=== PATIENT | male | born 1945 | race Caucasian/White ===

== ENCOUNTER 2016-11-20 09:41 | Inpatient (IN) | payer OTHER ==
[2016-11-20] MEDS ORDERED: NS 1,000 ML IV ONE (09:47)
[2016-11-20] MEDS ORDERED: diphenhydrAMINE 25 MG CAP PO ONE (09:47)
[2016-11-20] MEDS ORDERED: ASPIRIN EC 325 MG TAB PO ONE (09:47)
[2016-11-20] MEDS ORDERED: FAMOTIDINE 20 MG TAB PO ONE (09:47)
[2016-11-20] MEDS ORDERED: DIAZEPAM 5 MG TAB PO ONE (09:47)
[2016-11-20 10:21] LABS: % IMMATURE GRANULYOCYTES 0.4 % (0.0-1.1); ABSOLUTE IMMATURE GRANULOCYTES 0.02 10^3/uL (0.00-0.10); ADD DIFF? NO; ADD MORPH? NO; ADD SCAN? NO; ATYPICAL LYMPHOCYTE FLAG 0 (0-99); FRAGMENT RBC FLAG 0 (0-99); HEMATOCRIT 41.4 % (40.0-51.0); LEFT SHIFT FLG 0 (0-99); LIPEMIA HEMOLYSIS FLAG 90 (0-99); MEAN CELL HEMOGLOBIN 31.5 pg (27.9-34.1); MEAN CELL HEMOGLOBIN CONCENTR. 33.8 g/dL (32.4-36.7); MEAN PLATELET VOLUME 8.9 fL (8.7-11.7); PLATELET CLUMPS FLAG 0 (0-99); PLATELET COUNT 208 10^3/uL (150-400); RED BLOOD CELL COUNT 4.45 10^6/uL (4.40-6.38); RED CELL DISTRIBUTION WIDTH 13.4 % (11.5-15.2)
[2016-11-20 10:31] LABS: ANION GAP 13 mEq/L (8-16); CALCIUM 9.5 mg/dL (8.5-10.4); CARBON DIOXIDE 22 mEq/l (22-31); CHLORIDE 108 mEq/L (97-110); CHOLESTEROL 182 mg/dL (140-220); CHOLESTEROL/HDL RATIO 2.28 RATIO (1.00-4.97); GLOMERULAR FILTRATION RATE > 60; GLUCOSE 80 mg/dL (70-100); HIGH DENSITY LIPOPROTEIN 80 mg/dL (40-65); LDL/HDL RATIO 1.13 RATIO (1.00-3.64); LOW DENSITY LIPOPROTEIN 90 mg/dL (80-100); MAGNESIUM 2.1 mg/dL (1.6-2.3); NON-HIGH DENSITY LIPOPROTEIN 102 mg/dL (90-129); POTASSIUM 4.6 mEq/L (3.5-5.2); SODIUM 143 mEq/L (134-144); TRIGLYCERIDE 63 mg/dL (40-150); VERY LOW DENSITY LIPOPROTEINS 12 mg/dL (8-25)
[2016-11-20 10:33] LABS: INR 1.04 (0.83-1.16); PROTIME(PATIENT) 13.5 SEC (12.0-15.0)
[2016-11-20] MEDS ORDERED: HEPARIN 10,000 UNIT/10 ML MDV ONE (14:39)
[2016-11-20] MEDS ORDERED: fentaNYL 100 MCG/2 ML INJ ONE (14:39)
[2016-11-20] MEDS ORDERED: LIDOCAINE 1% 300 MG/30 ML SDV ONE (14:39)
[2016-11-20] MEDS ORDERED: VERAPAMIL 5 MG/2 ML VIAL ONE (14:39)
[2016-11-20] MEDS ORDERED: MIDAZOLAM 2 MG/2 ML VIAL ONE (14:39)
[2016-11-20] MEDS ORDERED: IOPAMIDOL (ISOVUE-370) 150 ML BTL IV ONE (14:39)
[2016-11-20] MEDS ORDERED: NITROGLYCERIN 0.4 MG BTL SL PRN (16:43)
[2016-11-20] MEDS ORDERED: ACETAMINOPHEN 325 MG TAB PO PRN (16:43)
[2016-11-20] MEDS ORDERED: TEMAZEPAM 15 MG CAP PO PRN (16:43)
[2016-11-20] MEDS ORDERED: HYDROCODONE/APAP 5/325 TAB PO PRN (16:43)
[2016-11-20] MEDS ORDERED: ATROPINE SULFATE 1 MG/10 ML SYR IVP PRN (16:43)
[2016-11-20] MEDS ORDERED: NS 1,000 ML IV SCH (16:45)
--- NOTE | 2016-11-20 17:44 | PDDXCAT ---
Diagnostic Cath Note - . Date: 11/20/16 Security Flex Officer: [place] Indication: other (Accelerating angina and abnormal exercise treadmill test.) - Procedure Access: right wrist Procedure: left heart catheterization, coronary angiography, left ventriculogram - Materials Left Heart Cath size: 5F Left Heart Cath materials: other (Sightseer and Pigtail) - Findings-Left Heart Catheterization LM: Distal 50%. LAD: Diffuse disease proximal to mid up to 50%. LCX: Ostial stenosis > 90% with [id number] collaterals. RCA: Mild irregularities proximal to distal; PDA 50% ostial; posterolateral branch 50% proximal. EDP: 20 mmHg LVEF: 60% Wall motion: Normal. Ascending aorta appears dilated. Complications: None Estimated blood loss: <50ml Closure method: TR Band Assessment: 1) Normal left ventricular systolic function. 2) Coronary artery disease as described above. Plan: Because of the escalating nature of his angina episodes, he will be admitted to the hospital following his catheterization. He will be started on beta brina therapy and a daily aspirin. His atorvastatin will be continued. A lipid panel will be checked tomorrow to make sure that he is at target levels for cholesterol suppression. Cardiothoracic surgery will be consulted to assess him for coronary bypass grafting. An echocardiogram will be obtained to check for any valvular issues. A noncontrasted CT of the chest will be ordered to assess his ascending aorta.
--- NOTE | 2016-11-20 18:04 | GHP ---
[f rep st] HISTORY AND PHYSICAL DATE OF ADMISSION: 11/20/2016 REASON FOR ADMISSION: 1. Escalating angina. 2. Abnormal exercise treadmill test. HISTORY: Mr. Song is a 71-year-old male with no prior cardiac history. He recently saw his primary care provider and reported that he had been experiencing episodes of chest discomfort described as a compressing-type feeling located in the middle of the chest and radiating outward. These episodes started at least 2 months ago. However, they have been increasing in their frequency and occurring with lower levels of physical exertion. He did experience 1 nocturnal episode last week which persisted for approximately 2 minutes. There was no associated shortness of breath, nausea, or diaphoresis. His primary care provider referred him to the office of [facility] for a standard exercise treadmill test. That procedure was carried out earlier today. He exercised 4 minutes and 8 seconds of the [place] protocol, reaching 88 % MPHR. He had his usual chest discomfort symptoms in conjunction with exercise. His ECG demonstrated ST-segment depression of up to 2 mm in the inferior leads and lateral precordial leads. His cardiac risk profile is notable for hyperlipidemia, for which he is treated with statin therapy. He does not have a history of hypertension or type 2 diabetes. He smoked in the past, but stopped at least 40 years ago. PAST MEDICAL HISTORY: 1. Hyperlipidemia. 2. Osteoarthritis. PAST SURGICAL HISTORY: Bilateral total hip replacements. FAMILY HISTORY: Noncontributory. MEDICATIONS: 1. Atorvastatin 40 mg per day. 2. Probiotic. 3. Ibuprofen 400 mg daily. ALLERGIES: No known drug allergies. SOCIAL HISTORY: He is . As mentioned previously, he smoked in the distant past. His alcohol consumption is minimal. He is semi-retired from business. REVIEW OF SYSTEMS: Apart from the chest discomfort episodes that prompted this hospital stay, a 10-point review was negative. PHYSICAL EXAMINATION: VITAL SIGNS: Heart rate 74, with sinus rhythm on the monitor. Blood pressure 112/77, with O2 saturation 97% on room air. GENERAL: Well developed, well nourished, healthy-appearing male in no acute distress. He is alert and oriented x3. HEAD AND NECK: No scleral icterus. Mucous membranes moist. Carotid pulses 2+ without bruits. There is no JVD. CHEST: Lung ocampo clear to auscultation. CARDIAC: Regular rate and rhythm, with normal S1, S2. No murmur or gallop appreciated. ABDOMEN: Soft, nontender, nondistended, with normoactive bowel sounds. EXTREMITIES: 2+ pulses and no peripheral edema. An Mike test on the right wrist was normal at less than 5 seconds. IMPRESSION: This is a 71-year-old male with fairly typical angina which has been accelerating and occurring at lower levels of physical exertion, including 1 resting episode of chest discomfort last week. His risk profile for coronary artery disease consists predominantly of his age and hyperlipidemia. His stress test was notable for his clinical angina and ischemic ST-segment depressions. PLAN: Preparations are underway for the patient to undergo cardiac catheterization. Further diagnostic and therapeutic decisions await the outcome of that study. /[id number]/MODL MTDD
[2016-11-20] MEDS: ONDANSETRON 4 MG/2 ML VIAL IVP PRN (20:48)
[2016-11-20] MEDS: METOPROLOL TARTRATE 25 MG TAB PO SCH ×2 (22:07→23:18)
[2016-11-20] MEDS: ATORVASTATIN CALCIUM 40 MG TAB PO SCH (22:07)
[2016-11-21 04:47] LABS: CHOLESTEROL 125 mg/dL (140-220); CHOLESTEROL/HDL RATIO 2.31 RATIO (1.00-4.97); HIGH DENSITY LIPOPROTEIN 54 mg/dL (40-65); LDL/HDL RATIO 1.09 RATIO (1.00-3.64); LOW DENSITY LIPOPROTEIN 59 mg/dL (80-100); NON-HIGH DENSITY LIPOPROTEIN 71 mg/dL (90-129); TRIGLYCERIDE 64 mg/dL (40-150); VERY LOW DENSITY LIPOPROTEINS 12 mg/dL (8-25)
[2016-11-21] MEDS ORDERED: ASPIRIN 325 MG TAB PO SCH (09:00)
--- NOTE | 2016-11-21 09:17 | GCON ---
[f rep st] CONSULTATION DATE OF CONSULTATION: 11/21/2016 REFERRING PHYSICIAN: Nicho Moody MD IMPRESSION: 1. Class 3-4 angina pectoris with 3-vessel disease and normal left ventricular function. 2. Hyperlipidemia. 3. Osteoarthritis. 4. Status post bilateral total hip replacements. RECOMMENDATIONS: This patient should undergo coronary artery revascularization with arterial condui ts as the preferred choice, given his youthful appearance and otherwise good health. I discussed ar terial and venous conduits patency rates at 10 years and overall risk. I would proceed with 2 inter nal mammary arteries and a left radial, if diagnostic testing confirms adequate palmar arch in that hand. Overall risk is less than 1/2 of 1%. Expected length of stay is 4-5 days, and return to work at 4-6 weeks. His daughter is a surgery resident at the [facility] and they are deciding whether chantelle rooney want to stay here or go there for surgical intervention. We would offer surgery tomorrow phylicia gtz if he were willing to stay here. CHIEF COMPLAINT: This gentleman has classic crescendo angina which has progressed over the last 8 m onths to now with minimal activity. He failed a stress test at [address]-segment changes an d chest pain. Diagnostic cath today reveals 3-vessel disease with normal LV function. He has mild enlargement of the ascending aorta. CAT scan is pending. MEDICAL HISTORY: As stated. SURGERIES: As stated. ALLERGIES: Denied. MEDICATIONS: On admission, atorvastatin, probiotic and ibuprofen. He has been started on antiangin al medication by Dr. Moody prior to intervention. SOCIAL HISTORY: He has remote cigarette abuse. Alcohol consumption is minimal. He is semi-retired from engineering. He is and has a daughter who is a 5th year surgery resident. REVIEW OF SYSTEMS: He complains of osteoarthritis in his lower extremities. Otherwise at the prese nt time, he is asymptomatic, denying chest pain. All 10 systems were interrogated and were unremark able. PHYSICAL EXAMINATION: GENERAL: This is a slender, elderly gentleman. Appears markedly younger candie n stated age. In excellent physical health. VITAL SIGNS: 96/52, pulse 56, respirations 14, O2 sat 99% on 2 L. HEENT: Normocephalic. MATT. EOMI. NECK: Without bruit, adenopathy, or thyromegal y. HEART: Rate is regular without murmur, S3 or S4. LUNGS: Clear. ABDOMEN: Soft, nontender. B owel sounds are active. RECTAL AND GENITAL: Deferred. NEUROLOGICAL: He is intact. No gross abno rmality. EXTREMITIES: All extremities move to command. IMAGING: Noncontrast CT was requested as are carotid ultrasounds. PLAN: I will meet with his family later this morning if they intend to stay. Otherwise I have no s cheduled followup with this gentleman. /[id number]/MODL
[2016-11-21] MEDS: METOPROLOL TARTRATE 25 MG TAB PO SCH ×2 (09:33→22:11)
[2016-11-21] MEDS: ASPIRIN 81 MG CHEWABLE TAB PO SCH (09:34)
--- NOTE | 2016-11-21 09:49 | ECHO ---
[id number] + + [address] : : [place] [address] : : [phone] + + Adult Echocardiographic Report + ----+ :Name: CHI BOWSER JStudy Date: 11/21/2016 08:41 AM : : Hospital Admission Number: [id number] Location: 207: :: 1945 Gender: Male Height: 72 in : :Age: 71 yrs Race: WH Weight: 160 lb : :Reason For Study: Eval LV Fx : : BSA: 1.9 meters2 : :History: CAD, Positive Stress Test : + ----+ MMode/2D Measurements \T\ Calculations IVSd: 0.87 cm LVIDd: 4.0 cm FS: 40.0 % Ao root diam: 3.6 cm LVPWd: 0.96 cm LVIDs: 2.4 cm EDV(Teich): 70.8 ml ACS: 2.0 cm ESV(Teich): 20.4 ml LA dimension: 2.8 cm EF(Teich): 71.2 % Normal Measurement Values: + + :LVIDd (3.5-5.7cm) IVSd (0.6-1.1cm) LVPWd (0.6-1.1cm) Aortic Root (2.0-3.7cm)Left Atrium (1.5-4.0cm): :LV Vol(d) (76-115ml) LV Vol(s) (29-48ml) Ejec Fraction (50-65%)PV Enmanuel (0.6- 1.2m/s) TV Enmanuel (0.4-1.0m/s) : :MV E Enmanuel (0.8-1.0m/s)MV A Enmanuel (0.3-1.0m/s)LVOT Enmanuel (0.7-1.2m/s) Asc Ao Enmanuel ( 0.9-1.8m/s) : + + Doppler Measurements \T\ Calculations MV E max enmanuel: Ao V2 max: LV V1 max: PA V2 max: 87.9 cm/sec 95.0 cm/sec 81.4 cm/sec 58.4 cm/sec MV A max enmanuel: Ao max PG: LV V1 max PG: PA max P.3 cm/sec 3.6 mmHg 2.7 mmHg 1.4 mmHg MV E/A: 1.7 TR max enmanuel: 251.1 cm/sec TR max P.2 mmHg RAP systole: 5.0 mmHg RVSP(TR): 30.2 mmHg Left Ventricle The left ventricle is normal in size. There is normal left ventricular wall thickness. The left ventricular ejection fraction is normal. There is Doppler evidence for diastolic dysfunction. Ejection Fraction = 72%. The left ventricular wall motion is normal. Right Ventricle The right ventricle is normal in size and function. Atria The left atrial size is normal. Right atrial size is normal. Mitral Valve There is mild mitral annular calcification. There is no evidence of mitral valve prolapse. There is no mitral valve stenosis. There is no mitral regurgitation noted. Tricuspid Valve Normal tricuspid valve. No tricuspid regurgitation. Aortic Valve The aortic valve is normal in structure and function. There is no aortic stenosis. There is no aortic insufficiency. Pulmonic Valve The pulmonic valve is normal in structure and function. There is no pulmonic valvular regurgitation. Great Vessels The aortic root is normal size. Pericardium/Pleural There is no pericardial effusion. Conclusion A complete two-dimensional transthoracic echocardiogram was performed (2D, M-mode, Doppler and color flow Doppler). The left ventricular ejection fraction is normal. There is Doppler evidence for diastolic dysfunction. Ejection Fraction = 72%. The left ventricular wall motion is normal. The right ventricle is normal in size and function. There is mild mitral annular calcification. The aortic valve is normal in structure and function. The aortic root is normal size. There is no pericardial effusion. Final Reading Physician: Neo Rey signed on 11/21/2016 09:48 AM Ordering Physician: Nicho Moody Performed By: Greg Arteaga, ИВАНCS
[2016-11-21] MEDS ORDERED: MUPIROCIN 2% 22 GM OINT NS ONE (14:16)
--- NOTE | 2016-11-21 14:59 | PDCARPN ---
Cardiology Progress Note Assessment/Plan: Coronary Artery Disease- left main and multivessel CAD with crescendo angina. Has preserved LV systolic function. Echocardiogram this morning demonstrates age -related valvular changes but no hemodynamically significant valvular dysfunction. Carotid ultrasound negative for any significant stenoses. Coronary bypass graft surgery planned for tomorrow. Hyperlipidemia- on treatment with atorvastatin. LDL close to target at 73. Dilated Ascending Aorta- measures 4.[address] scan. Will follow longitudinally. Long-term low-dose beta brina therapy. 11/21/16 14:57 Subjective: No complaints. Reviewed/Discussed With: family Objective: Vital Signs (8 Hrs) Temp Pulse Resp BP Pulse Ox 11/21/16 11:22 37.2 C 57 L 15 117/62 94 11/21/16 09:33 63 103/56 L 11/21/16 07:57 36.7 C 75 19 113/58 L 98 Intake/Output (24 Hrs) 11/20/16 11/21/16 11/22/16 05:59 05:59 05:59 Intake Total 250 Output Total 425 Balance -175 Intake: Oral (ml) 250 Output: Urine (ml) 425 Urinal 425 Other: Weight 72.6 kg Number of Voids Urinal 1 Result Diagrams: 11/20/16 10:10 11/20/16 10:10 - Physical Exam Constitutional: WDWN, healthy appearing, no apparent distress Eyes: anicteric sclera Ears, Nose, Mouth, Throat: moist mucous membranes Cardiovascular: regular rate and rhythm, no murmurs, no gallops Respiratory: clear to auscultate bilat Gastrointestinal: normoactive bowel sounds, no tenderness, no masses Skin: no rashes, no edema Neurologic: AAOx3 Psychiatric: not anxious ICD10 Worksheet Patient Problems: Problems Problem Status Onset Coronary artery disease Acute - ICD10 Problem Qualifiers (1) Coronary artery disease Qualifiers: Coronary Disease-Associated Artery/Lesion type: [place] artery [place] vs. transplanted heart: N Associated angina: with unstable angina
[2016-11-21 17:16] LABS: HEMOGLOBIN A1C 5.4 % (4.0-6.0)
[2016-11-21] MEDS ORDERED: CHLORHEXIDINE GLUC HIBICLENS 118 ML BTL TP SCH (21:00)
[2016-11-21] MEDS: ATORVASTATIN CALCIUM 40 MG TAB PO SCH (22:11)
[2016-11-21] MEDS: MUPIROCIN 2% 22 GM OINT NS SCH (22:39)
[2016-11-22] MEDS ORDERED: AMINOCAPROIC ACID 5 GM/20 ML VIAL IV ONE (06:00)
[2016-11-22] MEDS ORDERED: SODIUM BICARBONATE 20 MEQ, LIDOCAINE 1% 10 ML in NORMOSOL-R 1,000 ML MISC ONE (06:00)
[2016-11-22] MEDS ORDERED: ceFAZolin 2 GM/DEXTROSE 100 ML IV ONE ×2 (06:00→09:45)
[2016-11-22] MEDS ORDERED: niCARdipine/NACL 200 ML IV SCH (06:00)
[2016-11-22] MEDS ORDERED: MUPIROCIN 2% 22 GM OINT NS ONE (06:00)
[2016-11-22] MEDS ORDERED: CITRATE DEXTROSE SOLN 500 ML BAG MISC ONE (06:00)
[2016-11-22] MEDS ORDERED: NOREPINEPHRINE BITARTRATE 16 MG in NS 250 ML IV ONE (06:00)
[2016-11-22] MEDS ORDERED: VERAPAMIL 5 MG, NITROGLYCERIN 2.5 MG, HEPARIN 500 UNIT, SODIUM BICARBONATE 0.2 MEQ in L... MISC ONE (06:00)
[2016-11-22] MEDS ORDERED: PHENYLEPHRINE HCL 50 MG in NS 250 ML IV ONE (06:00)
[2016-11-22] MEDS ORDERED: MANNITOL 25% 12.5 GM/50 ML VIAL IV ONE (06:00)
[2016-11-22] MEDS ORDERED: INSULIN REGULAR HUMAN 100 UNIT in NS 100 ML IV ONE (06:00)
[2016-11-22] MEDS: ASPIRIN 81 MG CHEWABLE TAB PO SCH (07:30)
[2016-11-22] MEDS ORDERED: ALBUMIN 5% 250 ML BOTTLE IV ONE (08:18)
[2016-11-22] MEDS ORDERED: PROTAMINE SULFATE 50 MG/5 ML VIAL IVP ONE (08:18)
[2016-11-22] MEDS ORDERED: MILRINONE/DEXTROSE/100 ML BAG IV ONE (08:18)
[2016-11-22] MEDS ORDERED: CALCIUM CHLORIDE 1 GM/10 ML INJ ONE (08:18)
[2016-11-22] MEDS ORDERED: POTASSIUM Cl (KCl) 20 MEQ/50 ML BAG IV ONE (08:19)
[2016-11-22] MEDS ORDERED: NA BICARBONATE 50 MEQ/50 ML VIAL ONE (08:19)
[2016-11-22] MEDS ORDERED: niCARdipine/NACL/200 ML BAG IV ONE (08:19)
[2016-11-22] MEDS ORDERED: AMIODARONE HCL 150 MG/3 ML VIAL ONE (08:19)
[2016-11-22] MEDS ORDERED: AMINOCAPROIC ACID 5 GM/20 ML VIAL ONE (08:19)
[2016-11-22] MEDS ORDERED: CITRATE DEXTROSE SOLN 500 ML BAG ONE (08:19)
[2016-11-22] MEDS ORDERED: methylPREDNISolone SOD SUCC 1 GM/8 ML VIAL ONE (08:19)
[2016-11-22] MEDS ORDERED: LIDOCAINE 2% 100 MG/5 ML SYR ONE ×2 (08:19→10:30)
[2016-11-22] MEDS ORDERED: ADENOSINE 6 MG/2 ML VIAL ONE (08:19)
[2016-11-22] MEDS ORDERED: MAGNESIUM SULFATE 1 GM/2 ML VIAL ONE (08:19)
[2016-11-22] MEDS ORDERED: DOPamine/DEXTROSE/250 ML BAG IV ONE (08:19)
[2016-11-22] MEDS ORDERED: HEPARIN 10,000 UNIT/10 ML MDV ONE (08:20)
[2016-11-22] MEDS ORDERED: ceFAZolin 1 GM VIAL ONE (08:20)
[2016-11-22] MEDS: METOPROLOL TARTRATE 25 MG TAB PO SCH (08:56)
[2016-11-22] MEDS: MUPIROCIN 2% 22 GM OINT NS SCH ×2 (08:56→21:41)
[2016-11-22] MEDS ORDERED: LR 1,000 ML IV ONE (09:18)
[2016-11-22] MEDS ORDERED: PAPAVERINE HCL 60 MG/2 ML SDV ONE (09:19)
[2016-11-22] MEDS ORDERED: VERAPAMIL 5 MG/2 ML VIAL ONE (09:19)
[2016-11-22] MEDS ORDERED: MINERAL OIL 10 ML VIAL ONE (09:19)
[2016-11-22] MEDS ORDERED: CEFAZOLIN 2 GM/DEXTROSE/100 ML BAG IV ONE (09:37)
--- NOTE | 2016-11-22 10:11 | PDHPUP ---
History & Physical Update H&P update statement: This history and physical update is based on an assessment of the patient which was completed after admission or registration (within 24 hours), but prior to the surgery/procedure. H&P update: H&P reviewed & patient examined (denies CP or SOB while awaiting surgery) H&P changes: Mildly dilated asc aorta of questionable clinical significance. Moderate RCA disease which cardiology does not feel warrants bypass. A1C 5.4%. Type and screen neg for antibodies. Will accept venous conduit if either ELIA unsuitable
[2016-11-22] MEDS ORDERED: MIDAZOLAM 2 MG/2 ML VIAL IVP ONE (10:13)
--- NOTE | 2016-11-22 10:13 | PDANEPAE ---
ANE History of Present Illness 71 yo for CABG ANE Past Medical History - Cardiovascular History Hx Hypertension: No Hx Arrhythmias: No Hx Chest Pain: Yes Hx Coronary Artery / Peripheral Vascular Disease: Yes Hx CHF / Valvular Disease: No Hx Palpitations: No - Pulmonary History Hx COPD: No Hx Asthma/Reactive Airway Disease: No Hx Recent Upper Respiratory Infection: No Hx Oxygen in Use at Home: No Hx Sleep Apnea: No Sleep Apnea Screening Result - Last Documented: Negative - Endocrine History Hx Diabetes: No - Chronic Pain History Chronic Pain: No ANE Review of Systems - Exercise capacity METS (RN): 4 METS ANE Patient History - Allergies Allergies/Adverse Reactions: No Known Allergies Allergy (Unverified 07/19/15 07:28) - Home Medications Home medications: home medication list seen and reviewed Home Medications: Atorvastatin Calcium [Lipitor 40 mg (*)] 40 mg PO HS 07/19/15 [Last Taken 22:00] Herbals/Supplements -Info Only 1 ea PO HS 07/19/15 [Last Taken 11/19/16 22:00] Ibuprofen [Motrin (*)] 400 mg PO DAILY PRN 11/20/16 [Last Taken 11/19/16] - NPO status NPO Since - Liquids (Date): 11/22/16 NPO Since - Liquids (Time): 00:00 NPO Since - Solids (Date): 11/22/16 NPO Since - Solids (Time): 00:00 - Anes Hx Anes Hx: no prior problems - Smoking Hx Smoking Status: Former smoker ANE Labs/Vital Signs - Labs Result Diagrams: 11/20/16 10:10 11/20/16 10:10 - Vital Signs Blood Pressure: 109/64 Heart Rate: 67 Respiratory Rate: 16 O2 Sat (%): 95 Height: 6 ft 0.05 in Weight: 70.5 kg ANE Physical Exam - Airway Neck exam: FROM Mallampati Score: Class 2 Mouth exam: normal dental/mouth exam - Pulmonary Pulmonary: no respiratory distress - Cardiovascular Cardiovascular: regular rate and rhythym - ASA Status ASA Status: III ANE Anesthesia Plan Anesthesia Plan: general endotracheal anesthesia Lines/Monitors: arterial line, central line
[2016-11-22] MEDS ORDERED: fentaNYL 100 MCG/2 ML INJ ONE ×2 (10:27)
[2016-11-22] MEDS ORDERED: REMIFENTANIL HCL 1 MG VIAL ONE (10:27)
[2016-11-22] MEDS ORDERED: PROPOFOL/EMULSION 500 MG/50 ML BOTTLE IV ONE (10:27)
[2016-11-22] MEDS ORDERED: ROCURONIUM 100 MG/10 ML VIAL ONE (10:28)
[2016-11-22] MEDS ORDERED: DEXMEDETOMIDINE HCL 400 MCG in NS 100 ML IV ONE (10:30)
[2016-11-22] MEDS ORDERED: DEXAMETHASONE 4 MG/ML VIAL ONE (10:31)
[2016-11-22] MEDS ORDERED: HYDROmorphONE/DILAUDID 2 MG/ML INJ ONE (12:18)
[2016-11-22] MEDS ORDERED: SUGAMMADEX SODIUM 200 MG/2 ML VIAL IVP ONE (13:30)
[2016-11-22] MEDS ORDERED: ONDANSETRON 4 MG/2 ML VIAL ONE (13:30)
[2016-11-22] MEDS ORDERED: MAGNESIUM SULF 2 GM/WATER 50 ML BAG IV ONE (13:51)
[2016-11-22] MEDS ORDERED: POTASSIUM Cl (KCl) 50 ML IV PRN (13:52)
[2016-11-22] MEDS ORDERED: LACTULOSE 20 GM/30 ML UDCUP PO PRN (13:52)
[2016-11-22] MEDS ORDERED: D50W 25 GM/50 ML SYR IVP PRN (13:52)
[2016-11-22] MEDS ORDERED: MAGNESIUM HYDROXIDE 30 ML UDCUP PO PRN (13:52)
[2016-11-22] MEDS ORDERED: MAGNESIUM SULF 2 GM/WATER 50 ML IV ONE (13:52)
[2016-11-22] MEDS ORDERED: POLYETHYLENE GLYCOL 3350 17 GM PKT PO PRN (13:52)
[2016-11-22] MEDS ORDERED: METOCLOPRAMIDE 10 MG/2 ML VIAL IVP PRN (13:52)
[2016-11-22] MEDS ORDERED: BISACODYL 10 MG SUPP PR PRN (13:52)
[2016-11-22] MEDS ORDERED: SODIUM CL NASAL 45 ML BTL EACHNARE PRN (13:52)
[2016-11-22] MEDS ORDERED: CEPACOL LOZENGE PO PRN (13:52)
[2016-11-22] MEDS ORDERED: PANTOPRAZOLE SODIUM 40 MG in NS 100 ML IV ONE (13:52)
[2016-11-22] MEDS ORDERED: ONDANSETRON DISINTEGRATING 4 MG TAB PO PRN (13:52)
[2016-11-22] MEDS ORDERED: MEPERIDINE 25 MG/ML SYR IVP PRN (13:52)
[2016-11-22] MEDS ORDERED: INSULIN REGULAR HUMAN 100 UNIT in NS 100 ML IV SCH (14:00)
[2016-11-22] MEDS ORDERED: NS 1,000 ML IV SCH (14:00)
--- NOTE | 2016-11-22 14:25 | CPEKG ---
Heart Rate: 73 RR Interval: 822 P-R Interval: 112 QRSD Interval: 78 QT Interval: 456 QTC Interval: 503 P [place]: 81 QRS [place]: 71 T Wave [place]: 74 EKG Severity - ABNORMAL ECG - EKG Impression: SINUS RHYTHM EKG Impression: PROLONGED QT INTERVAL Electronically Signed By: Varun Younger 22-Nov-2016 14:36:35
[2016-11-22] MEDS ORDERED: D10W 250 ML PRN HYPOGLYCEMIA IV (14:30)
[2016-11-22 14:58] LABS: CALCULATED OXYGEN SATURATION 95 % (92-95)
--- NOTE | 2016-11-22 15:06 | POSTANESTH ---
Post Anesthetic Evaluation Cardiovascular Status: Normal, Stable Respiratory Status: Other, See Comment Level of Consciousness/Mental Status: Moderately Sleepy Pain Control: Adequate, Prn Tx Ordered Nausea/Vomiting Control: Adequate, Prn Tx Ordered Complications Possibly Related to Anesthesia: None Noted (on vent, sedated. No apparent complications from anesthesia)
[2016-11-22] MEDS: ALBUMIN 5% 250 ML IV PRN ×4 (15:45→23:37)
[2016-11-22] MEDS ORDERED: ceFAZolin 2 GM/DEXTROSE 100 ML IV SCH (18:00)
[2016-11-22] MEDS ORDERED: NALOXONE HCL 0.4 MG/ML INJ IVP PRN (18:30)
[2016-11-22] MEDS ORDERED: fentaNYL 100 MCG/2 ML INJ IVP PRN (18:30)
[2016-11-22] MEDS: fentaNYL 100 MCG/2 ML INJ IVP PRN ×5 (18:36→23:30)
[2016-11-22] MEDS: ceFAZolin 2 GM/DEXTROSE 100 ML IV SCH (22:09)
[2016-11-23] MEDS: fentaNYL 100 MCG/2 ML INJ IVP PRN ×4 (00:11→05:31)
[2016-11-23 04:22] LABS: % IMMATURE GRANULYOCYTES 0.2 % (0.0-1.1); ABSOLUTE IMMATURE GRANULOCYTES 0.02 10^3/uL (0.00-0.10); ADD DIFF? NO; ADD MORPH? NO; ADD SCAN? NO; ATYPICAL LYMPHOCYTE FLAG 0 (0-99); FRAGMENT RBC FLAG 0 (0-99); HEMATOCRIT 30.8 % (40.0-51.0); HEMOGLOBIN 10.4 g/dL (13.7-17.5); LEFT SHIFT FLG 50 (0-99); LIPEMIA HEMOLYSIS FLAG 90 (0-99); MEAN CELL HEMOGLOBIN 31.7 pg (27.9-34.1); MEAN CELL HEMOGLOBIN CONCENTR. 33.8 g/dL (32.4-36.7); MEAN CELL VOLUME 93.9 fL (81.5-99.8); MEAN PLATELET VOLUME 9.5 fL (8.7-11.7); PLATELET CLUMPS FLAG 0 (0-99); PLATELET COUNT 148 10^3/uL (150-400); RED BLOOD CELL COUNT 3.28 10^6/uL (4.40-6.38); RED CELL DISTRIBUTION WIDTH 13.3 % (11.5-15.2)
[2016-11-23 04:28] LABS: ANION GAP 9 mEq/L (8-16); CALCIUM 8.2 mg/dL (8.5-10.4); CARBON DIOXIDE 23 mEq/l (22-31); CHLORIDE 110 mEq/L (97-110); CREATININE 0.8 mg/dL (0.7-1.3); GLOMERULAR FILTRATION RATE > 60; GLUCOSE 92 mg/dL (70-100); POTASSIUM 4.6 mEq/L (3.5-5.2); SODIUM 142 mEq/L (134-144)
[2016-11-23] MEDS: ceFAZolin 2 GM/DEXTROSE 100 ML IV SCH ×3 (05:37→20:43)
[2016-11-23] MEDS: ONDANSETRON 4 MG/2 ML VIAL IVP PRN (05:56)
[2016-11-23] MEDS: HEPARIN 5,000 UNIT/0.5 ML SYR SC SCH ×3 (06:31→20:42)
--- NOTE | 2016-11-23 07:09 | SOAPPROG ---
SOAP Progress Note Assessment/Plan: POD #1 CABG x2 (NAVA-LAD, ROSALBA-OM), LLAA Unstable angina/severe 2VD s/p CABGx2 - Transfer to PCU - ASA/BB/Statin for secondary prevention - Heparin SQ for DVT prophylaxis Acute blood loss anemia - Stable with the need for blood product transfusions Subjective: c/o incisional/chest tube site pain. Denies SOB. Objective: Vital Signs Temp Pulse Resp BP Pulse Ox 38.2 C 81 20 130/62 H 94 11/23/16 06:00 11/23/16 06:00 11/23/16 06:00 11/23/16 06:00 11/23/16 06:00 Laboratory Results 11/23/16 04:00 11/23/16 04:00 11/22/16 11/23/16 11/24/16 05:59 05:59 05:59 Intake Total 600 1910 Output Total 2380 Balance 600 -470 PT 13.5 SEC (12.0-15.0) 11/20/16 10:10 INR 1.04 (0.83-1.16) 11/20/16 10:10 Physical Exam - Physical Exam General Appearance: WD/WN, alert, no apparent distress EENT: No scleral icterus (R), No scleral icterus (L) Neck: normal inspection Respiratory: No respiratory distress Cardiac/Chest: regular rate, rhythm Abdomen: non-tender, soft, No distended Skin: normal color, warm/dry Extremities: No pedal edema Neuro/Psych: no motor/sensory deficits, alert, normal mood/affect, oriented x 3 ICD10 Worksheet Patient Problems: Problems Problem Status Onset Acute blood loss anemia Acute Coronary artery disease Acute S/P CABG x 2 Acute ~11/22/16 Ascending aorta dilatation Chronic
[2016-11-23] MEDS ORDERED: KETOROLAC 30 MG/1 ML SDV ONE (07:13)
[2016-11-23] MEDS ORDERED: traMADol 50 MG TAB PO PRN (07:26)
[2016-11-23] MEDS ORDERED: ACETAMINOPHEN 325 MG TAB PO PRN (07:26)
[2016-11-23] MEDS ORDERED: KETOROLAC 30 MG/1 ML SDV IVP ONE (08:03)
[2016-11-23] MEDS: MUPIROCIN 2% 22 GM OINT NS SCH (09:57)
[2016-11-23] MEDS: ASPIRIN 81 MG CHEWABLE TAB PO SCH (09:57)
[2016-11-23] MEDS: PANTOPRAZOLE SODIUM 40 MG TAB PO SCH (09:57)
[2016-11-23] MEDS: HYDROCODONE/APAP 5/325 TAB PO PRN ×3 (14:46→22:54)
[2016-11-23] MEDS: SENNOSIDES/DOCUSATE SODIUM TAB PO SCH (20:42)
[2016-11-23] MEDS ORDERED: METOPROLOL TARTRATE 25 MG TAB PO SCH (21:00)
[2016-11-24] MEDS: HYDROCODONE/APAP 5/325 TAB PO PRN ×5 (02:39→21:09)
[2016-11-24] MEDS: MUPIROCIN 2% 22 GM OINT NS SCH (02:39)
[2016-11-24] MEDS: ceFAZolin 2 GM/DEXTROSE 100 ML IV SCH (05:27)
[2016-11-24] MEDS: HEPARIN 5,000 UNIT/0.5 ML SYR SC SCH ×3 (05:30→21:08)
[2016-11-24] MEDS ORDERED: AMIODARONE HCL 100 ML IV ONE ×2 (05:59→08:28)
[2016-11-24] MEDS ORDERED: AMIODARONE HCL 200 ML IV ONE (05:59)
[2016-11-24] MEDS ORDERED: NS 500 ML IV ONE ×3 (05:59→08:59)
[2016-11-24 06:11] LABS: ANION GAP 7 mEq/L (8-16); CALCIUM 8.5 mg/dL (8.5-10.4); CARBON DIOXIDE 27 mEq/l (22-31); CHLORIDE 104 mEq/L (97-110); GLOMERULAR FILTRATION RATE > 60; GLUCOSE 116 mg/dL (70-100); MAGNESIUM 2.3 mg/dL (1.6-2.3); POTASSIUM 4.7 mEq/L (3.5-5.2); SODIUM 138 mEq/L (134-144)
[2016-11-24] MEDS ORDERED: NS 1,000 ML IV SCH (07:30)
--- NOTE | 2016-11-24 07:59 | SOAPPROG ---
SOAP Progress Note Assessment/Plan: POD #2 CABG x2 (NAVA-LAD, ROSALBA-OM), LLAA Unstable angina/severe 2VD s/p CABGx2 - ASA/BB/Statin for secondary prevention when appropriate - Heparin SQ/SCDs for DVT prophylaxis - ECHO this AM to evaluate LV - NS @ 125 cc/h for dehydration Acute blood loss anemia - Stable with the need for blood product transfusions Post-op atrial fibrillation - Continue amiodarone - Consider BB later today when improvement in BP Subjective: c/o pain at chest tube sites. Hard to take deep breaths. Light-headed when standing. Objective: Vital Signs Temp Pulse Resp BP Pulse Ox 36.9 C 118 H 17 115/66 95 11/24/16 07:12 11/24/16 07:34 11/24/16 07:12 11/24/16 07:34 11/24/16 07:12 Laboratory Results 11/23/16 04:00 11/24/16 05:20 11/23/16 11/24/16 11/25/16 05:59 05:59 05:59 Intake Total 1910 1910 Output Total 2380 800 180 Balance -470 1110 -180 PT 13.5 SEC (12.0-15.0) 11/20/16 10:10 INR 1.04 (0.83-1.16) 11/20/16 10:10 Physical Exam - Physical Exam General Appearance: alert, mild distress EENT: No scleral icterus (R), No scleral icterus (L) Neck: normal inspection Respiratory: No respiratory distress Cardiac/Chest: irregularly irregular Abdomen: non-tender, soft, No distended Skin: normal color, warm/dry Extremities: No pedal edema Neuro/Psych: no motor/sensory deficits, alert, normal mood/affect, oriented x 3 ICD10 Worksheet Patient Problems: Problems Problem Status Onset Acute blood loss anemia Acute Coronary artery disease Acute Postoperative atrial fibrillation Acute S/P CABG x 2 Acute ~11/22/16 Ascending aorta dilatation Chronic
[2016-11-24] MEDS: ASPIRIN 81 MG CHEWABLE TAB PO SCH (08:01)
[2016-11-24] MEDS: SENNOSIDES/DOCUSATE SODIUM TAB PO SCH ×2 (08:01→21:09)
[2016-11-24] MEDS: PANTOPRAZOLE SODIUM 40 MG TAB PO SCH (08:01)
--- NOTE | 2016-11-24 08:45 | CPEKG ---
Heart Rate: 125 RR Interval: 480 P-R Interval: 120 QRSD Interval: 70 QT Interval: 332 QTC Interval: 479 P [place]: 251 QRS [place]: 34 T Wave [place]: 42 EKG Severity - ABNORMAL ECG - EKG Impression: ECTOPIC ATRIAL TACHYCARDIA EKG Impression: ST ELEVATION SUGGESTS PERICARDITIS EKG Impression: BORDERLINE PROLONGED QT INTERVAL Electronically Signed By: Varun Younger 24-Nov-2016 10:07:38
--- NOTE | 2016-11-24 09:28 | ECHO ---
[id number] + + [address] : : [place] [address] : : [phone] + + Adult Echocardiographic Report + ----+ :Name: CHI BOWSER JStudy Date: 11/24/2016 08:46 AM : : Hospital Admission Number: [id number] Location: 222: :: 1945 Gender: Male : :Age: 71 yrs Race: WH : :Reason For Study: Hypotension/evaluate EF/R/O effusion : + ----+ Left Ventricle The left ventricle is hyperdynamic. Pericardium/Pleural There is no pericardial effusion. Conclusion Limited 2-D echo. The study was technically limited. The left ventricle is hyperdynamic. There is no pericardial effusion. Final Reading Physician: Neo Rey signed on 11/24/2016 09:26 AM Ordering Physician: Sebastien Montoya Performed By: Sue Yu, [facility]
[2016-11-24 10:24] LABS: HEMATOCRIT 29.1 % (40.0-51.0); HEMOGLOBIN 9.5 g/dL (13.7-17.5); MEAN CELL HEMOGLOBIN 31.4 pg (27.9-34.1); MEAN CELL HEMOGLOBIN CONCENTR. 32.6 g/dL (32.4-36.7); RED BLOOD CELL COUNT 3.03 10^6/uL (4.40-6.38); RED CELL DISTRIBUTION WIDTH 13.6 % (11.5-15.2)
[2016-11-24] MEDS ORDERED: AMIODARONE HCL 540 MG in D5W 300 ML IV ONE (12:20)
[2016-11-24] MEDS: ATORVASTATIN CALCIUM 40 MG TAB PO SCH (21:09)
[2016-11-25] MEDS: HYDROCODONE/APAP 5/325 TAB PO PRN ×5 (00:53→20:18)
[2016-11-25] MEDS ORDERED: LIDOCAINE 2% JELLY 20 ML (UROJECT) ONE (01:11)
[2016-11-25] MEDS: HEPARIN 5,000 UNIT/0.5 ML SYR SC SCH ×3 (05:25→20:18)
[2016-11-25 06:04] LABS: HEMATOCRIT 26.2 % (40.0-51.0); HEMOGLOBIN 8.6 g/dL (13.7-17.5); MEAN CELL HEMOGLOBIN 31.3 pg (27.9-34.1); MEAN CELL HEMOGLOBIN CONCENTR. 32.8 g/dL (32.4-36.7); MEAN CELL VOLUME 95.3 fL (81.5-99.8); RED BLOOD CELL COUNT 2.75 10^6/uL (4.40-6.38); RED CELL DISTRIBUTION WIDTH 13.4 % (11.5-15.2)
[2016-11-25 06:31] LABS: ANION GAP 7 mEq/L (8-16); CALCIUM 8.1 mg/dL (8.5-10.4); CARBON DIOXIDE 26 mEq/l (22-31); CHLORIDE 104 mEq/L (97-110); CREATININE 0.8 mg/dL (0.7-1.3); GLOMERULAR FILTRATION RATE > 60; GLUCOSE 106 mg/dL (70-100); POTASSIUM 4.2 mEq/L (3.5-5.2); SODIUM 137 mEq/L (134-144)
--- NOTE | 2016-11-25 07:45 | SOAPPROG ---
SOAP Progress Note Assessment/Plan: POD #3 CABG x2 (NAVA-LAD, ROSALBA-OM), LLAA Unstable angina/severe 2VD s/p CABGx2 - ASA/BB/Statin for secondary prevention when appropriate - Heparin SQ/SCDs for DVT prophylaxis - ECHO yesterday revealed hyperdynamic LV without pericardial effusion Acute blood loss anemia - Stable with the need for blood product transfusions Post-op atrial fibrillation - Continue amiodarone - CHADS2-VASc score of 3 - thromboprophylaxis deferred d/t short duration of arrhythmia and ligated left atrial appendage Subjective: Feeling better this morning. Stronger, not light-headed, less pain. Objective: Vital Signs Temp Pulse Resp BP Pulse Ox 36.8 C 76 13 97/54 L 97 11/25/16 07:20 11/25/16 07:20 11/25/16 07:20 11/25/16 07:20 11/25/16 07:20 Laboratory Results 11/25/16 05:45 11/25/16 05:45 11/24/16 11/25/16 11/26/16 05:59 05:59 05:59 Intake Total 1910 1025 Output Total 800 1525 Balance 1110 -500 PT 13.5 SEC (12.0-15.0) 11/20/16 10:10 INR 1.04 (0.83-1.16) 11/20/16 10:10 Physical Exam - Physical Exam General Appearance: WD/WN, alert, no apparent distress EENT: No scleral icterus (R), No scleral icterus (L) Neck: normal inspection Respiratory: No respiratory distress Cardiac/Chest: regular rate, rhythm Abdomen: non-tender, soft, No distended Skin: normal color, warm/dry Extremities: No pedal edema Neuro/Psych: no motor/sensory deficits, alert, normal mood/affect, oriented x 3 ICD10 Worksheet Patient Problems: Problems Problem Status Onset Acute blood loss anemia Acute Coronary artery disease Acute Postoperative atrial fibrillation Acute S/P CABG x 2 Acute ~11/22/16 Ascending aorta dilatation Chronic
[2016-11-25] MEDS: ASPIRIN 81 MG CHEWABLE TAB PO SCH (08:48)
[2016-11-25] MEDS: SENNOSIDES/DOCUSATE SODIUM TAB PO SCH ×2 (08:48→21:22)
[2016-11-25] MEDS: PANTOPRAZOLE SODIUM 40 MG TAB PO SCH (08:48)
[2016-11-25] MEDS: AMIODARONE HCL 200 MG TAB PO SCH ×2 (08:49→20:19)
[2016-11-25] MEDS: CARVEDILOL 3.125 MG TAB PO SCH (17:52)
[2016-11-25] MEDS: ATORVASTATIN CALCIUM 40 MG TAB PO SCH (20:19)
[2016-11-25] MEDS ORDERED: METOPROLOL TARTRATE 25 MG TAB PO SCH (21:00)
[2016-11-26] MEDS: HYDROCODONE/APAP 5/325 TAB PO PRN ×4 (04:40→20:15)
[2016-11-26] MEDS: HEPARIN 5,000 UNIT/0.5 ML SYR SC SCH ×3 (04:41→20:16)
[2016-11-26 05:05] LABS: HEMATOCRIT 24.7 % (40.0-51.0); HEMOGLOBIN 8.2 g/dL (13.7-17.5)
--- NOTE | 2016-11-26 07:33 | SOAPPROG ---
SOAP Progress Note Assessment/Plan: POD #4 CABG x2 (NAAV-LAD, ROSALBA-OM), LLAA Unstable angina/severe 2VD s/p CABGx2 - ASA/BB/Statin for secondary prevention - Final CT to be removed today - Heparin SQ/SCDs for DVT prophylaxis Acute blood loss anemia - Stable with the need for blood product transfusions Post-op atrial fibrillation - Continue amiodarone/beta-brina - CHADS2-VASc score of 3 - thromboprophylaxis deferred d/t short duration of arrhythmia and ligated left atrial appendage Disposition - Home Sunday without services Subjective: Feels well. Ready to get home tomorrow. Objective: Vital Signs Temp Pulse Resp BP Pulse Ox 36.7 C 80 18 117/51 L 96 11/26/16 05:23 11/26/16 05:23 11/26/16 05:23 11/26/16 05:23 11/26/16 05:23 Laboratory Results 11/26/16 04:45 11/25/16 05:45 11/25/16 11/26/16 11/27/16 05:59 05:59 05:59 Intake Total 1025 1308 Output Total 1525 1245 Balance -500 63 PT 13.5 SEC (12.0-15.0) 11/20/16 10:10 INR 1.04 (0.83-1.16) 11/20/16 10:10 Physical Exam - Physical Exam General Appearance: WD/WN, alert, no apparent distress EENT: No scleral icterus (R), No scleral icterus (L) Neck: normal inspection Respiratory: No respiratory distress Cardiac/Chest: regular rate, rhythm Abdomen: non-tender, soft, No distended Skin: normal color, warm/dry Extremities: No pedal edema Neuro/Psych: no motor/sensory deficits, alert, normal mood/affect, oriented x 3 ICD10 Worksheet Patient Problems: Problems Problem Status Onset Acute blood loss anemia Acute Coronary artery disease Acute Postoperative atrial fibrillation Acute S/P CABG x 2 Acute ~11/22/16 Ascending aorta dilatation Chronic
[2016-11-26] MEDS: ASPIRIN 81 MG CHEWABLE TAB PO SCH (07:53)
[2016-11-26] MEDS: CARVEDILOL 3.125 MG TAB PO SCH (07:53)
[2016-11-26] MEDS: SENNOSIDES/DOCUSATE SODIUM TAB PO SCH ×2 (07:53→20:15)
[2016-11-26] MEDS: PANTOPRAZOLE SODIUM 40 MG TAB PO SCH (07:53)
[2016-11-26] MEDS: AMIODARONE HCL 200 MG TAB PO SCH ×2 (07:58→20:15)
[2016-11-26] MEDS: FERROUS SULFATE 325 MG TAB PO SCH (08:54)
[2016-11-26] MEDS ORDERED: CARVEDILOL 3.125 MG TAB PO ONE (09:09)
[2016-11-26] MEDS: CARVEDILOL 6.25 MG TAB PO SCH (17:52)
[2016-11-26] MEDS: ATORVASTATIN CALCIUM 40 MG TAB PO SCH (20:15)
[2016-11-27] MEDS: HYDROCODONE/APAP 5/325 TAB PO PRN ×3 (05:03→20:56)
[2016-11-27] MEDS: HEPARIN 5,000 UNIT/0.5 ML SYR SC SCH (05:03)
--- NOTE | 2016-11-27 07:24 | SOAPPROG ---
SOAP Progress Note Assessment/Plan: POD #5 CABG x2 (NAVA-LAD, ROSALBA-OM), LLAA Unstable angina/severe 2VD s/p CABGx2 - ASA/BB/Statin for secondary prevention - Heparin SQ/SCDs for DVT prophylaxis Acute blood loss anemia - Stable with the need for blood product transfusions Post-op atrial fibrillation - Continue amiodarone/beta-brina - CHADS2-VASc score of 3 - thromboprophylaxis deferred d/t short duration of arrhythmia and ligated left atrial appendage Disposition - Home Today without services Subjective: Feels well. No complaints. Ready to get home. Objective: Vital Signs Temp Pulse Resp BP Pulse Ox 36.8 C 78 16 119/58 L 96 11/27/16 04:00 11/27/16 04:00 11/27/16 05:47 11/27/16 04:00 11/27/16 05:47 Laboratory Results 11/26/16 04:45 11/25/16 05:45 11/26/16 11/27/16 11/28/16 05:59 05:59 05:59 Intake Total 1308 1770 Output Total 1245 1765 Balance 63 5 PT 13.5 SEC (12.0-15.0) 11/20/16 10:10 INR 1.04 (0.83-1.16) 11/20/16 10:10 Physical Exam - Physical Exam General Appearance: WD/WN, alert, no apparent distress EENT: No scleral icterus (R), No scleral icterus (L) Neck: normal inspection Respiratory: No respiratory distress Cardiac/Chest: regular rate, rhythm Abdomen: soft, No non-tender, No distended Skin: normal color, warm/dry Extremities: No pedal edema Neuro/Psych: no motor/sensory deficits, alert, normal mood/affect, oriented x 3 ICD10 Worksheet Patient Problems: Problems Problem Status Onset Acute blood loss anemia Acute Coronary artery disease Acute Postoperative atrial fibrillation Acute S/P CABG x 2 Acute ~11/22/16 Ascending aorta dilatation Chronic
[2016-11-27] MEDS: CARVEDILOL 6.25 MG TAB PO SCH ×2 (08:01→18:48)
[2016-11-27] MEDS: FERROUS SULFATE 325 MG TAB PO SCH (08:01)
[2016-11-27] MEDS: AMIODARONE HCL 200 MG TAB PO SCH ×2 (08:02→20:56)
[2016-11-27] MEDS: PANTOPRAZOLE SODIUM 40 MG TAB PO SCH (08:02)
[2016-11-27] MEDS: ASPIRIN 81 MG CHEWABLE TAB PO SCH (08:02)
[2016-11-27] MEDS ORDERED: METOPROLOL TARTRATE 5 MG/5 ML INJ IVP ONE (08:29)
[2016-11-27] MEDS ORDERED: METOPROLOL TARTRATE 5 MG/5 ML INJ ONE (08:30)
[2016-11-27] MEDS: SENNOSIDES/DOCUSATE SODIUM TAB PO SCH ×2 (09:18→20:57)
[2016-11-27] MEDS: APIXABAN 5 MG TAB PO SCH ×2 (11:25→20:56)
[2016-11-27] MEDS ORDERED: AMIODARONE HCL 100 ML IV ONE (18:00)
[2016-11-27] MEDS: ATORVASTATIN CALCIUM 40 MG TAB PO SCH (20:55)
--- NOTE | 2016-11-28 07:44 | SOAPPROG ---
SOAP Progress Note Assessment/Plan: POD #6 CABG x2 (NAVA-LAD, ROSALBA-OM), LLAA Unstable angina/severe 2VD s/p CABGx2 - ASA/BB/Statin for secondary prevention - Eliquis/SCDs for DVT prophylaxis Acute blood loss anemia - Stable with the need for blood product transfusions Post-op atrial fibrillation - Continue amiodarone/beta-brina/Eliquis Disposition - Home Today without services Subjective: No complaints, ready to get home. Objective: Vital Signs Temp Pulse Resp BP Pulse Ox 36.3 C 79 16 116/78 89 L 11/28/16 04:00 11/28/16 04:00 11/28/16 04:00 11/28/16 04:00 11/28/16 04:00 Laboratory Results 11/26/16 04:45 11/25/16 05:45 11/27/16 11/28/16 11/29/16 05:59 05:59 05:59 Intake Total 1770 1540 Output Total 1765 395 Balance 5 1145 PT 13.5 SEC (12.0-15.0) 11/20/16 10:10 INR 1.04 (0.83-1.16) 11/20/16 10:10 Physical Exam - Physical Exam General Appearance: WD/WN, alert, no apparent distress EENT: No scleral icterus (R), No scleral icterus (L) Neck: normal inspection Respiratory: No respiratory distress Cardiac/Chest: regular rate, rhythm Abdomen: non-tender, soft, No distended Skin: normal color, warm/dry Extremities: No pedal edema Neuro/Psych: no motor/sensory deficits, alert, normal mood/affect, oriented x 3 ICD10 Worksheet Patient Problems: Problems Problem Status Onset Acute blood loss anemia Acute Coronary artery disease Acute Postoperative atrial fibrillation Acute S/P CABG x 2 Acute ~11/22/16 Ascending aorta dilatation Chronic
[2016-11-28 07:56] VITALS: BP 118/55; PULSE 74; RESP 18; TEMP 99; O2SAT 90
[2016-11-28] MEDS: APIXABAN 5 MG TAB PO SCH (08:26)
[2016-11-28] MEDS: SENNOSIDES/DOCUSATE SODIUM TAB PO SCH (08:26)
[2016-11-28] MEDS: HYDROCODONE/APAP 5/325 TAB PO PRN (08:27)
[2016-11-28] MEDS: AMIODARONE HCL 200 MG TAB PO SCH (08:27)
[2016-11-28] MEDS: CARVEDILOL 6.25 MG TAB PO SCH (08:27)
[2016-11-28] MEDS: ASPIRIN 81 MG CHEWABLE TAB PO SCH (08:27)
[2016-11-28] MEDS: PANTOPRAZOLE SODIUM 40 MG TAB PO SCH (08:28)
[2016-11-28] MEDS: FERROUS SULFATE 325 MG TAB PO SCH (08:28)
--- NOTE | 2016-11-28 10:49 | PDDCSUM ---
Discharge Summary Discharge Summary: ADMISSION DATE: 11/20/16 DISCHARGE DATE: 11/28/16 ADMISSION DX: 1. Unstable angina 2. Coronary artery disease DISCHARGE DX: 1. Unstable angina 2. Coronary artery disease 3. Acute blood loss anemia 4. Post-op atrial fibrillation PROCEDURES 11/09/16, Nicho Ruvalcaba: 1. CABGx2 (NAVA-LAD, ROSALBA-OM), [facility]RSE BY PROBLEM LIST 1. Unstable angina with CAD s/p CABG x2 well-tolerated post-operative course. Beta-brina, aspirin, and statin prescribed. 2. Acute blood loss anemia - stable without the need for blood product transfusions. Iron prescribed for one month. 3. Post-operative atrial fibrillation conversion to sinus rhythm with beta- brina and amiodarone. Eliquis prescribed for thromboprophylaxis. CONDITION Good DISPOSITION Home, self-care ACTIVITY Pt was instructed on sternal precautions, activity limitations, and which problems to call [facility] with. Please see Discharge Plan in chart for specifics. D/C MEDICATIONS New 1. Acetaminophen [Tylenol 325mg (*)] 325 - 650 mg PO Q4HRS PRN 2. Amiodarone HCl [Pacerone (*)] 200 mg PO BID 3. Apixaban [Eliquis] 5 mg PO BID 4. Aspirin [Aspirin 81mg (*)] 81 mg PO DAILY 5. Carvedilol [Coreg (*)] 6.25 mg PO BIDMEAL 6. Ferrous Sulfate [Ferrous Sulf 325 MG (*)] 325 mg PO DAILY 7. Hydrocodone/APAP 5/325 [[place] 5/325 (*)] 1 - 2 tab PO Q4HRS PRN Continue: 1. Atorvastatin Calcium [Lipitor 40 mg (*)] 40 mg PO HS 2. Herbals/Supplements -Info Only 1 ea PO HS Discontinue: 1. Ibuprofen PENDING STUDIES/LABS 1. CXR prior to surgical follow-up F/U APPOINTMENTS 1. Nicho Ruvalcaba - 12/05/16, 11:30 AM
== END 2016-11-28 12:31 | disposition home or self-care (01) | DRG 234 ==
LOC: FCATH 09:41 → F2W 16:00 → OBSVTOIN 17:14 → F2W 17:38 → F2N 11-22 09:06 → F2W 11-23 10:13
PROVIDERS: ADMIT Internal Medicine Interventional Cardiology; ATTEND Thoracic Surgery (Cardiothoracic Vascular Surgery)
DX: I25.110 Atherosclerotic heart disease of native coronary artery with unstable angina pectoris (principal); D62 Acute posthemorrhagic anemia; I48.91 Unspecified atrial fibrillation; E78.5 Hyperlipidemia, unspecified; I10 Essential (primary) hypertension; E11.9 Type 2 diabetes mellitus without complications; Z96.643 Presence of artificial hip joint, bilateral; Z87.891 Personal history of nicotine dependence
CPT/HCPCS: 82947-QW; 97116-GP; 97162-GP; 97165-GO; 97530-GP; 97535-GO; C1769; G8978-GP-CK; G8979-GP-CI; G8987-GO-CJ; G8988-GO-CI; J0153; J0282; J0461; J0690; J1100; J1170; J1265; J1644; J1815; J1885; J2001; J2150; J2250; J2260; J2370; J2405; J2440; J2704; J2720; J2765; J2930; J3010; J7060; P9041; Q9967

== ENCOUNTER → 2016-12-05 | Outpatient (CLI) | payer OTHER | LOC: FIMAGING 10:38 | PROVIDERS: ATTEND Thoracic Surgery (Cardiothoracic Vascular Surgery) | DX: Z09 Encounter for follow-up examination after completed treatment for conditions other than malignant neoplasm (principal); Z95.1 Presence of aortocoronary bypass graft; J90 Pleural effusion, not elsewhere classified; J98.11 Atelectasis ==

== ENCOUNTER 2016-12-30 12:39 | Emergency (ER) | payer OTHER ==
[2016-12-30 12:44] VITALS: RESP 16; TEMP 97.5
--- NOTE | 2016-12-30 14:35 | EDPHY ---
H & P Stated Complaint: L leg swelling Time Seen by Provider: 12/30/16 14:31 HPI/ROS: HPI: This is a pleasant 71-year-old male who presents with Chief Complaint: Lower left leg swelling Location: Lower left leg Quality: Swelling Duration: 2 days Signs and Symptoms: No injury, no shortness of breath, no redness, no warmth, no discharge, no radiation, no numbness, no tingling Timing: gradual onset Severity: Mild Context: Patient has coronary artery disease and underwent a CABG x 2 hospitalization at this facility 11/20/16-11/28/16. His last dose of Eliquis was yesterday. He is taking bad back aspirin daily Patient and family noted left lower leg swelling over the last 2 days. Admits he has been eating more salt lately. Denies any recent long distance trips. Modifying Factors: Comment: ROS: Constitutional: No fever, no chills, no weight loss Eyes: No blurred vision Respiratory: No shortness of breath, no cough Cardiovascular: No chest pain Gastrointestinal: No nausea, no vomiting no diarrhea Genitourinary: No dysuria Extremities: No myalgias Neurologic: No weakness, no numbness Skin: No rashes Hematologic: No bruising, no bleeding MEDICAL/SURGICAL HISTORY: Coronary disease, CABG x 2. Paroxysmal atrial fib, Hypertension, Hyperlipidemia , osteoarthritis. Bilateral hip replacements. - Personal History Current Tetanus/Diphtheria Vaccine: Unsure Current Tetanus Diphtheria and Acellular Pertussis (TDAP): Unsure - Medical/Surgical History Hx Asthma: No Hx Chronic Respiratory Disease: No Hx Diabetes: No Hx Cardiac Disease: Yes Hx Renal Disease: No Hx Cirrhosis: No Hx Alcoholism: No Hx HIV/AIDS: No Hx Splenectomy or Spleen Trauma: No Other PMH: Bilat hip replacement; high cholesterol - Social History Smoking Status: Former smoker - Physical Exam Exam: CONSTITUTIONAL: Well-appearing elderly white male, awake and alert, no obvious distress HEENT: Atraumatic and normocephalic, PERRL, EOMI. Tympanic membranes clear. . Oropharynx clear, no exudate and moist pink mucosa. Airway patent. No lymphadenopathy. No meningismus. Cardiovascular: Normal S1/S2, regular rate, regular rhythm, without murmur rub or gallop. PULMONARY/CHEST: Symmetrical and nontender. Clear to auscultation bilaterally Good air movement. No accessory muscle usage. ABDOMEN: Soft, nondistended, nontender, no rebound, no guarding, no peritoneal signs, no masses or organomegaly. No CVAT. EXTREMITIES: 2/2 pedal pulses, no clubbing, no cyanosis or edema. left calf mild increase in swelling as compared to rigth calf. negative Matty's sign. Varicose veins present BLE. There is a small contusion noted on the left lateral ankle superior to the lateral malleolus. Left ankle has full range of motion, no laxity. Feet are warm to touch. NEUROLOGICAL: no focal neuro deficits. GCS 15. Ambulatory without deficit. SKIN: Warm and dry, no erythema. no rash. Good capillary refill. Constitutional: Initial Vital Signs Temperature (C) 36.4 C 12/30/16 12:42 Heart Rate 66 12/30/16 12:42 Respiratory Rate 16 12/30/16 12:42 Blood Pressure 122/60 H 12/30/16 12:42 O2 Sat (%) 96 12/30/16 12:42 O2 Delivery Mode Room Air Allergies/Adverse Reactions: No Known Allergies Allergy (Unverified 07/19/15 07:28) Home Medications: Medication Instructions Recorded Atorvastatin Calcium [Lipitor 40 40 mg PO HS 07/19/15 mg (*)] Herbals/Supplements -Info Only 1 ea PO HS 07/19/15 Acetaminophen [Tylenol 325mg (*)] 325 - 650 mg PO Q4HRS PRN #0 tab 11/28/16 Amiodarone HCl [Pacerone (*)] 200 mg PO BID #60 tab 11/28/16 Apixaban [Eliquis] 5 mg PO BID #60 tab 11/28/16 Aspirin [Aspirin 81mg (*)] 81 mg PO DAILY #30 tab.chew 11/28/16 Carvedilol [Coreg (*)] 6.25 mg PO BIDMEAL #60 tab 11/28/16 Ferrous Sulfate [Ferrous Sulf 325 325 mg PO DAILY #30 tab 11/28/16 MG (*)] Hydrocodone/APAP 5/325 [[place] 1 - 2 tab PO Q4HRS PRN #40 tab 11/28/16 5/325 (*)] Medical Decision Making - Diagnostics Imaging Results: Imaging Impressions Extremity Venous Study 12/30/16 14:33 Impression: No deep venous thrombosis left leg. Results called to Pam Vasquez PA-C, at 3:40 PM ED Course/Re-evaluation: Left lower extremity venous ultrasound ordered No signs of neurovascular compromise/cellulitis Differential Diagnosis: Differential diagnosis includes but is not limited to contusion, hematoma, dependent edema, peripheral vascular disease. Departure - Departure Disposition: Home, Routine, Self-Care Clinical Impression: Contusion of leg, left Qualifiers: Encounter type: initial encounter Qualified Code(s): S80.12XA - Contusion of left lower leg, initial encounter Condition: Good Instructions: Leg Edema (ED) Additional Instructions: Limits salt in her diet. Elevate legs to reduce swelling. Wear compression stockings as needed for lower leg edema. Referrals: RON BROWN [Primary Care Provider] - 5-7 days, if not improved
[2016-12-30 15:55] VITALS: BP 121/70; PULSE 56; O2SAT 98
== END 2016-12-30 15:55 | disposition home or self-care (01) ==
DX: M79.81 Nontraumatic hematoma of soft tissue (principal); I25.810 Atherosclerosis of coronary artery bypass graft(s) without angina pectoris; I10 Essential (primary) hypertension; Z79.82 Long term (current) use of aspirin; Z79.01 Long term (current) use of anticoagulants; Z87.891 Personal history of nicotine dependence

== ENCOUNTER → 2018-09-04 | Outpatient (CLI) | payer OTHER | LOC: BRMIMAGING 13:09 | PROVIDERS: ATTEND Family Medicine | DX: N62 Hypertrophy of breast (principal) | CPT/HCPCS: 76641-PO ==